=== PATIENT | male | born 2000 | race Caucasian/White ===

== ENCOUNTER 2024-08-09 08:32 | Emergency (ER) | payer SELFPAY ==
[2024-08-09] MEDS ORDERED: Cephalexin 500 MG CAP ONE (09:50)
[2024-08-09] MEDS ORDERED: Bacitracin 1 PK ONE (09:50)
== END 2024-08-09 09:56 | disposition home or self-care (01) ==
LOC: MADERS 08:32
DX: S67.190A Crushing injury of right index finger, initial encounter (principal); S61.210A Laceration without foreign body of right index finger without damage to nail, initial encounter; F17.290 Nicotine dependence, other tobacco product, uncomplicated; W23.1XXA Caught, crushed, jammed, or pinched between stationary objects, initial encounter
CPT/HCPCS: 99283